=== PATIENT | female | born 1985 | race Two or more races ===

== ENCOUNTER 2024-12-06 15:27 | Outpatient (CLI) | payer OTHER | END 2024-12-06 16:50 | disposition home or self-care (01) | LOC: NST 15:27 | PROVIDERS: ATTEND Obstetrics & Gynecology Maternal & Fetal Medicine | DX: Z3A.39 39 weeks gestation of pregnancy (principal) ==

== ENCOUNTER 2024-12-12 13:41 | Inpatient (IN) | payer OTHER ==
[~2024-12-12] VITALS: Ht 160 cm; Wt 67.1 kg
[2024-12-13 23:35] VITALS: BP 112/70
[2024-12-13] MEDS ORDERED: AMPICILLIN SODIUM 2,000 MG VIAL ONE (23:39)
[2024-12-13] MEDS ORDERED: ERYTHROMYCIN BASE OPHT 1GM EACH TUBE OP ONE (23:47)
[2024-12-13] MEDS ORDERED: OXYTOCIN 20 UNITS/1000ML RL PIGGYBAG IV ONE (23:47)
[2024-12-13] MEDS ORDERED: LIDOCAINE HCL 1% 10ML VIAL ONE (23:47)
[2024-12-13] MEDS ORDERED: CHLORHEXIDINE GLUCONATE 120 ML BOTTLE TOP ONE (23:47)
[2024-12-13] MEDS ORDERED: PRENATABS RX T1 EACH PO (23:49)
[2024-12-14] VITALS (9 sets, daily range): BP systolic 99–122; BP diastolic 66–84; O2SAT 100
[2024-12-14] MEDS ORDERED: AMPICILLIN SODIUM 2,000 MG VIAL IV ONE (00:15)
[2024-12-14] MEDS ORDERED: MORPHINE SULFATE 4 MG/ML CARTRIDGE IV PRN (00:15)
[2024-12-14] MEDS ORDERED: RINGERS SOLUTION,LACTATED 1,000 ML IV SCH (00:15)
[2024-12-14 00:23] LABS: HEMATOCRIT 32.5 % (36.0-45.00); HEMOGLOBIN 10.7 g/dL (12.0-15.00); MEAN CELL VOLUME 82.5 fL (80.00-100.00); MEAN CORPUSCULAR HGB CONC 32.8 g/dl (32.0-36.0); PLATELET COUNT 257 K/uL (150-450); RED BLOOD COUNT 3.95 M/uL (4.00-6.00); RED CELL DISTRIBUTION WIDTH 14.8 % (11.5-14.5)
[2024-12-14 00:54] LABS: INR < 0.93; PARTIAL THROMBOPLASTIN TIME 25.9 SECONDS (22.0-34.0); PROTHROMBIN TIME 9.8 SECONDS (9.0-11.5)
[2024-12-14 00:58] LABS: ALBUMIN 2.7 gm/dL (3.4-5.0); BILIRUBIN TOTAL 0.3 mg/dL (0.3-1.2); CALCIUM 8.4 mg/dL (8.5-10.1); CREATININE SERUM 0.66 mg/dL (0.55-1.02); GFR 100.77; GLOBULINA 3.8 G/DL (2.4-3.5); POTASSIUM 3.82 mEq/L (3.5-5.1); TOTAL PROTEIN 6.5 gm/dL (6.4-8.2)
[2024-12-14] MEDS ORDERED: AMPICILLIN SODIUM 1,000 MG VIAL IV SCH (04:00)
[2024-12-14] MEDS ORDERED: OxyCODONE HCL/APAP UD (PERCOCET) PO PRN (04:30)
[2024-12-14] MEDS ORDERED: OxyCODONE HCL 5 MG TABLET (ROXICODONE) PO PRN (04:30)
[2024-12-14] MEDS ORDERED: OXYTOCIN 1,000 ML IV SCH (04:30)
[2024-12-14] MEDS ORDERED: IBUprofen 400 MG TABLET PO PRN (04:30)
[2024-12-14] MEDS ORDERED: ERYTHROMYCIN BASE OPHT 1GM EACH TUBE OP ONE (04:45)
[2024-12-14] MEDS ORDERED: CHLORHEXIDINE GLUCONATE 120 ML BOTTLE TOP ONE (04:45)
[2024-12-14] MEDS ORDERED: LIDOCAINE HCL 1% 10ML VIAL PERCUT ONE (04:45)
[2024-12-14] MEDS ORDERED: ACETAMINOPHEN 325 MG TABLET PO SCH (09:00)
[2024-12-15] VITALS: BP 101/68; O2SAT 97
[2024-12-15 16:01] VITALS: BP 111/71
[2024-12-16] VITALS: BP 108/63
[2024-12-16 09:03] VITALS: BP 109/71
== END 2024-12-16 11:15 | disposition home or self-care (01) | DRG 807 ==
LOC: OB/GYN 13:41 → LDR 12-13 23:41 → OB/GYN 12-13 23:41
PROVIDERS: Obstetrics & Gynecology; ADMIT Obstetrics & Gynecology Maternal & Fetal Medicine; ATTEND Obstetrics & Gynecology Maternal & Fetal Medicine
PROC: 4A1HXCZ Monitoring of Products of Conception, Cardiac Rate, External Approach (ICD-10-PCS; 2024-12-13)
PROC: 10E0XZZ Delivery of Products of Conception, External Approach (ICD-10-PCS; principal; 2024-12-14)
PROC: 0W8NXZZ Division of Female Perineum, External Approach (ICD-10-PCS; 2024-12-14)
DX: O80 Encounter for full-term uncomplicated delivery (principal); Z37.0 Single live birth; Z3A.40 40 weeks gestation of pregnancy

== ENCOUNTER 2024-12-13 16:11 | Outpatient (CLI) | payer OTHER ==
[2024-12-13] MEDS ORDERED: PRENATABS RX T1 EACH PO (23:49)
== END 2024-12-13 16:46 | disposition home or self-care (01) ==
LOC: NST 16:11
PROVIDERS: ATTEND Obstetrics & Gynecology
DX: Z34.83 Encounter for supervision of other normal pregnancy, third trimester (principal)